=== PATIENT | male | born 1990 | race Caucasian/White ===

== ENCOUNTER 2018-02-13 14:55 | Emergency (ER) | payer SELFPAY ==
[2018-02-13 15:05] VITALS: BP 117/72
--- NOTE | 2018-02-13 15:13 | ER Document Report ---
ED General - General Mode of Arrival: Ambulatory Information source: Patient TRAVEL OUTSIDE OF THE [place] IN LAST 30 DAYS: No <BECKIE VILLANUEVA - Last Filed: 02/13/18 22:25> <PAULINA DAVENPORT Serenity - Last Filed: 02/13/18 22:56> - General Chief Complaint: Buttock Injury Stated Complaint: TAILBONE PAIN Time Seen by Provider: 02/13/18 15:07 Notes: 27 y.o male presents to the ED with pain to his tail bone area. Pt reports that he was helping his friend move and he pushed up against the wall and felt pain. Pt denies any fall or burning with urination or fever. Pt reports past abscesses to the inside of his proximal legs and states that he has been told that they could come up anywhere. (BECKIE VILLANUEVA) - Related Data Allergies/Adverse Reactions: No Known Allergies Allergy (Verified 02/13/18 14:57) Past Medical History - General Information source: Patient - Social History Smoking Status: Current Every Day Smoker Cigarette use (# per day): Yes - 1 pack/day Chew tobacco use (# tins/day): No Smoking Education Provided: Yes Frequency of alcohol use: Social Family History: None. denies: Arthritis, CAD, CVA, DM, Hyperlipidemia, Hypertension, Malignancy, Thyroid Disfunction Musculoskeltal Medical History: Reports Hx Musculoskeletal Deformity - Back pain in the past, Reports Hx Musculoskeletal Trauma - Right clavicle Skin Medical History: Reports Hx Cellulitis, Reports Hx MRSA Traumatic Medical History: Reports: Hx Fractures - Right clavicle - Immunizations Hx Diphtheria, Pertussis, Tetanus Vaccination: Yes - unknown <BECKIE VILLANUEVA - Last Filed: 02/13/18 22:25> Review of Systems - Review of Systems Constitutional: denies: Fever EENT: No symptoms reported Cardiovascular: No symptoms reported Respiratory: No symptoms reported Gastrointestinal: No symptoms reported Genitourinary: See HPI. denies: Burning Male Genitourinary: No symptoms reported Musculoskeletal: No symptoms reported Skin: See HPI, Other - abscess to tailbone region Hematologic/Lymphatic: No symptoms reported Neurological/Psychological: No symptoms reported -: Yes All other systems reviewed and negative <BECKIE VILLANUEVA - Last Filed: 02/13/18 22:25> Physical Exam <BECKIE VILLANUEVA - Last Filed: 02/13/18 22:25> <PAULINA DAVENPORT - Last Filed: 02/13/18 22:56> - Vital signs Vitals: Temp Pulse Resp BP Pulse Ox 98.0 F 120 H 16 117/72 98 02/13/18 15:03 02/13/18 15:03 02/13/18 15:03 02/13/18 15:03 02/13/18 15:03 - Notes Notes: Physical Exam: General: Alert, appears well. HEENT: Normocephalic. Atraumatic. PERRL. Extraocular movements intact. Oropharynx clear. Neck: Supple. Non-tender. Respiratory: No respiratory distress. Clear and equal breath sounds bilaterally. Cardiovascular: Regular rate and rhythm. Abdominal: Normal Inspection. Non-tender. No distension. Normal Bowel Sounds. Back: Non-tender. No deformity or step off. Extremities: Moves all four extremities. Upper extremities: Normal inspection. Normal ROM. Lower extremities: Normal inspection. No edema. Normal ROM. Neurological: Normal cognition. AAOx3. Normal speech. Psychological: Normal affect. Normal Mood. Skin: Warm. Dry. TTP to gluteal fold, no bruising. Boggy area at the beginning of gluteal fold, induration and erythema 1cm surrounding boggy area. (BECKIE VILLANUEVA) Course <BECKIE VILLANUEVA - Last Filed: 02/13/18 22:25> <PAULINA DAVENPORT - Last Filed: 02/13/18 22:56> - Re-evaluation Re-evalutation: 02/13/18 15:24 Rechecked pt's pulse to be 92 bpm. (BECKIE VILLANUEVA) 02/13/18 15:51 Patient history physical examination consistent with pilonidal cyst. Incision and drainage performed at bedside with no complications. No evidence of surrounding cellulitis will defer any this time. Referred to [facility] for surgery referral from them. Instructed patient to remove wick in 2 days. Return precautions provided. (PAULINA DAVENPORT) - Vital Signs Vital signs: Temp Pulse Resp BP Pulse Ox 98.0 F 92 16 117/72 98 02/13/18 15:03 02/13/18 15:24 02/13/18 15:03 02/13/18 15:03 02/13/18 15:03 Procedures <BECKIE VILLANUEVA - Last Filed: 02/13/18 22:25> - Incision and Drainage Buttock Type: Simple Anesthetic type: 1% Lidocaine Blade size: 11 I&D procedure: Betadine prep applied Incision Method: Incision made by scalpel Amount/type of drainage: 4 cc of purulent bloody discharge <PAULINA DAVENPORT - Last Filed: 02/13/18 22:56> - Incision and Drainage Buttock Notes: 02/13/18 15:51 Small amount of packing placed no complications during procedure (PAULINA DAVENPORT) Discharge <BECKIE VILLANUEVA - Last Filed: 02/13/18 22:25> <PAULINA DAVENPORT - Last Filed: 02/13/18 22:56> - Discharge Clinical Impression: Pilonidal abscess Condition: Good Disposition: HOME, SELF-CARE Instructions: Abscess ([facility]), Post Incision and Drainage Additional Instructions: [facility] will refer you to a surgeon for definitive care for removal of pilonidal cyst Remove wick put in abscess in 2 days Referrals: [facility] [NO [facility]AL MD] - Follow up in 3-5 days Scribe Attestation: 02/13/18 22:56 I personally performed the services described documentation, reviewed and edited the documentation which was dictated to describe my presence, and it accurately records my words and actions. (PAULINA DAVENPORT) Scribe Documentation - Scribe Written by Yovani:: Yovani Adams 02/13/18 [id number] acting as scribe for :: Sunny <BECKIE VILLANUEVA - Last Filed: 02/13/18 22:25>
[2018-02-13] MEDS ORDERED: LIDOCAINE 1% INJ-PF (10 MG/ML) 30 ML SDV INJ ONE (15:14)
== END 2018-02-13 15:57 | disposition home or self-care (01) ==
LOC: ER 14:55
PROC: 0H98XZZ Drainage of Buttock Skin, External Approach (ICD-10-PCS; principal; 2018-02-13)
DX: L05.01 Pilonidal cyst with abscess (principal); F17.210 Nicotine dependence, cigarettes, uncomplicated
CPT/HCPCS: 99283

== ENCOUNTER 2020-02-03 11:19 | Emergency (ER) | payer SELFPAY ==
[2020-02-03 11:24] VITALS: BP 120/76
[2020-02-03] MEDS ORDERED: DIPH/PERTUSS(ACELL)/TETANUS VAC/PF 0.5 ML SYR (>=10YO) IM ONE (11:26)
[2020-02-03] MEDS ORDERED: LIDOCAINE 1% INJ (10 MG/ML) 10 ML MDV INJ ONE (11:26)
--- NOTE | 2020-02-03 11:32 | ER Document Report ---
HPI - HPI Patient complains to provider of: Insect bite Time Seen by Provider: 02/03/20 11:24 Onset: Yesterday Onset/Duration: Sudden Quality of pain: Achy Associated Symptoms: None Exacerbated by: Denies Relieved by: Denies Past Medical History - General Information source: Patient - Social History Smoking Status: Current Every Day Smoker Cigarette use (# per day): Yes - 20 Chew tobacco use (# tins/day): No Smoking Education Provided: No Frequency of alcohol use: Rare Family History: None. denies: Arthritis, CAD, CVA, DM, Hyperlipidemia, Hypertension, Malignancy, Thyroid Disfunction - Medical History Medical History: Negative Renal/ Medical History: Denies: Hx Peritoneal Dialysis Musculoskeletal Medical History: Reports Hx Musculoskeletal Deformity - Back pain in the past, Reports Hx Musculoskeletal Trauma - Right clavicle Skin Medical History: Reports Hx Cellulitis, Reports Hx MRSA Traumatic Medical History: Reports: Hx Fractures - Right clavicle - Immunizations Hx Diphtheria, Pertussis, Tetanus Vaccination: Yes - unknown Vertical Provider Document - CONSTITUTIONAL Agree With Documented VS: Yes - INFECTION CONTROL TRAVEL OUTSIDE OF THE [place] IN LAST 30 DAYS: No - HEENT HEENT: Atraumatic, Conjuctival Injection - NECK Neck: Normal Inspection, Supple - RESPIRATORY Respiratory: Breath Sounds Normal, No Respiratory Distress - CARDIOVASCULAR Cardiovascular: Regular Rate, Regular Rhythm - GI/ABDOMEN Gastrointestinal: Abdomen Soft, Abdomen Non-Tender - REPRODUCTIVE Male Genitalia: Normal Inspection - BACK Back: Normal Inspection - MUSCULOSKELETAL/EXTREMETIES Musculoskeletal/Extremeties: MAEW - NEURO Level of Consciousness: Awake, Alert Notes: Abscess to posterior aspect of right lower extremity. 2 x 2 centimeter fluctuant area. Course - Vital Signs Vital signs: Temp Pulse Resp BP Pulse Ox 98.1 F 101 H 14 120/76 99 02/03/20 11:23 02/03/20 11:23 02/03/20 11:23 02/03/20 11:23 02/03/20 11:23 Procedures - Incision and Drainage Right Lower Leg Type: Simple Anesthetic type: 1% Lidocaine Blade size: 11 I&D procedure: Betadine prep applied, Sterile dressing applied Incision Method: Incision made by scalpel Amount/type of drainage: 10cc Discharge - Discharge Clinical Impression: Abscess Condition: Good Disposition: HOME, SELF-CARE Instructions: Abscess ([facility]), Post Incision and Drainage, Trimethoprim-Sulfa ([facility]) Additional Instructions: Warm soaks 4-5 times a day. Follow-up PMD in 2 to 3 days. Prescriptions: Sulfamethoxazole/Trimethoprim [Bactrim 400-80 mg Tablet] 1 each PO Q12 #20 tablet Naproxen Sodium [Naproxen Sodium ER] 500 mg PO Q12 PRN #20 tablet.sa PRN Reason:
[2020-02-03] MEDS ORDERED: LIDOCAINE 2% INJ-PF (20 MG/ML) 10 ML AMPUL ONE (11:37)
[2020-02-03] MEDS ORDERED: LIDOCAINE 1% INJ-PF (10 MG/ML) 30 ML SDV ONE (11:39)
== END 2020-02-03 11:52 | disposition home or self-care (01) ==
LOC: ER 11:19
PROC: 0H9KXZZ Drainage of Right Lower Leg Skin, External Approach (ICD-10-PCS; principal; 2020-02-03)
DX: L02.415 Cutaneous abscess of right lower limb (principal); M54.9 Dorsalgia, unspecified; W57.XXXA Bitten or stung by nonvenomous insect and other nonvenomous arthropods, initial encounter; F17.210 Nicotine dependence, cigarettes, uncomplicated; Z86.14 Personal history of Methicillin resistant Staphylococcus aureus infection
CPT/HCPCS: 99283; 90471; 90715; 10060; J3490

== ENCOUNTER 2020-05-05 13:46 | Emergency (ER) | payer SELFPAY ==
[2020-05-05 13:57] VITALS: BP 130/79
[2020-05-05] MEDS ORDERED: CLINDAMYCIN 300 MG/D5W RTU 300 MG/50 ML RTUPB IV ONE (14:06)
--- NOTE | 2020-05-05 14:09 | ER Document Report ---
ED Medical Screen (RME) - General Chief Complaint: Insect Bite Stated Complaint: TOOTHACHE/RIGHT ELBO INSECT BITE Time Seen by Provider: 05/05/20 13:58 Notes: Patient is a 29-year-old male who presents emergency department with a chief complaint of left lower jaw swelling and right elbow swelling. Patient states that his symptoms started about a week ago. Patient has history of abscesses in the past. Denies any history of IV drug use. Exam: Fluctuance noted to the left lower jaw. Erythema and tenderness noted to right elbow. I have greeted and performed a rapid initial assessment of this patient. A comprehensive ED assessment and evaluation of the patient, analysis of test results and completion of medical decision making process will be conducted by an additional ED providers. TRAVEL OUTSIDE OF THE [place] IN LAST 30 DAYS: No - Related Data Allergies/Adverse Reactions: No Known Allergies Allergy (Verified 02/03/20 11:24) Past Medical History Renal/ Medical History: Denies: Hx Peritoneal Dialysis Musculoskeltal Medical History: Reports Hx Musculoskeletal Deformity - Back pain in the past, Reports Hx Musculoskeletal Trauma - Right clavicle Skin Medical History: Reports Hx Cellulitis, Reports Hx MRSA Traumatic Medical History: Reports: Hx Fractures - Right clavicle - Immunizations Hx Diphtheria, Pertussis, Tetanus Vaccination: Yes - unknown Physical Exam - Vital signs Vitals: Temp Pulse Resp BP Pulse Ox 98.5 F 99 20 130/79 H 98 05/05/20 13:55 05/05/20 13:55 05/05/20 13:55 05/05/20 13:55 05/05/20 13:55 Course - Vital Signs Vital signs: Temp Pulse Resp BP Pulse Ox 98.5 F 99 20 130/79 H 98 05/05/20 13:55 05/05/20 13:55 05/05/20 13:55 05/05/20 13:55 05/05/20 13:55
[2020-05-05] MEDS ORDERED: LIDOCAINE 1% INJ-PF (10 MG/ML) 30 ML SDV INJ ONE (14:14)
[2020-05-05 14:52] LABS: ABSOLUTE BASOPHILS # (AUTO) 0.1 10^3/uL (0.0-0.2); ABSOLUTE EOSINOPHILS # (AUTO) 0.3 10^3/uL (0.0-0.6); ABSOLUTE LYMPHOCYTES (AUTO) 2.2 10^3/uL (0.5-4.7); ABSOLUTE MONOCYTES (AUTO) 1.5 10^3/uL (0.1-1.4); ABSOLUTE NEUT (AUTO) 9.3 10^3/uL (1.7-8.2); BASOPHILS % (AUTO) 0.5 % (0-2); EOSINOPHILS % (AUTO) 1.9 % (0-6); HEMATOCRIT 38.7 % (37.9-51.0); HEMOGLOBIN 13.3 g/dL (13.5-17.0); LYMPHOCYTES % (AUTO) 16.5 % (13-45); MEAN CORPUSCULAR HEMOGLOBIN 31.6 pg (27.0-33.4); MEAN CORPUSCULAR HGB CONC 34.3 g/dL (32.0-36.0); MEAN CORPUSCULAR VOLUME 92 fl (80-97); MONOCYTES % (AUTO) 11.3 % (3-13); PLATELET COUNT 340 10^3/uL (150-450); RED BLOOD COUNT 4.21 10^6/uL (4.35-5.55); RED CELL DISTRIBUTION WIDTH 12.7 % (11.5-14.0); SEGMENTED NEUTROPHILS % (AUTO) 69.8 % (42-78); TOTAL CELLS COUNTED % (AUTO) 100 %; WHITE BLOOD COUNT 13.3 10^3/uL (4.0-10.5)
--- NOTE | 2020-05-05 14:55 | ER Document Report ---
ED Skin Rash/Insect Bite/Abscs - General Chief Complaint: Abscess Stated Complaint: TOOTHACHE/RIGHT ELBO INSECT BITE Time Seen by Provider: 05/05/20 13:58 Primary Care Provider: Sae [facility] [Provider Group] - Follow up in 1 week [facility] [Provider Group] - Follow up as needed [facility] [Provider Group] - Follow up as needed Notes: Patient is a 29-year-old male who presents emergency department with a chief complaint of left lower jaw swelling and right elbow swelling. Patient states that his symptoms started about a week ago. States that he has an abscess there and he attempted to drain it, but only a small amount of drainage came out. Patient has history of abscesses in the past. Denies any history of IV drug use. TRAVEL OUTSIDE OF THE [place] IN LAST 30 DAYS: No - Related Data Allergies/Adverse Reactions: No Known Allergies Allergy (Verified 02/03/20 11:24) Past Medical History - Social History Smoking Status: Current Every Day Smoker Frequency of alcohol use: None Drug Abuse: Marijuana Family History: None. denies: Arthritis, CAD, CVA, DM, Hyperlipidemia, Hypertension, Malignancy, Thyroid Disfunction Renal/ Medical History: Denies: Hx Peritoneal Dialysis Musculoskeletal Medical History: Reports Hx Musculoskeletal Deformity - Back pain in the past, Reports Hx Musculoskeletal Trauma - Right clavicle Skin Medical History: Reports Hx Cellulitis, Reports Hx MRSA Traumatic Medical History: Reports: Hx Fractures - Right clavicle - Immunizations Hx Diphtheria, Pertussis, Tetanus Vaccination: Yes - unknown Review of Systems - Review of Systems Notes: REVIEW OF SYSTEMS: CONSTITUTIONAL : Denies recent illness. Denies recent unintentional weight loss. See HPI. EENT: Denies eye, ear, throat, discharge, or symptoms. Denies nasal or sinus congestion. See HPI. CARDIOVASCULAR: Denies chest pain. RESPIRATORY: Denies shortness of breath, cough, congestion, difficulty breathing, or wheezing. GASTROINTESTINAL: Denies nausea, vomiting, and diarrhea. Denies abdominal pain. Denies constipation. GENITOURINARY: Denies difficulty urinating, burning, blood in urine, urgency or frequency. MUSCULOSKELETAL: Denies neck and back pain. Denies joint pain or swelling. SKIN: See HPI. HEMATOLOGIC : Denies easy bruising or bleeding. LYMPHATIC: Denies swollen, painful, enlarged glands. NEUROLOGICAL: Denies no numbness or tingling denies weakness. Denies headache. Denies altered mental status. Denies alteration in speech. PSYCHIATRIC: Denies stress, anxiety, alteration in sleep patterns, or depression. All other systems reviewed and negative. Physical Exam - Vital signs Vitals: Temp Pulse Resp BP Pulse Ox 98.5 F 99 20 130/79 H 98 05/05/20 13:55 05/05/20 13:55 05/05/20 13:55 05/05/20 13:55 05/05/20 13:55 - Notes Notes: PHYSICAL EXAMINATION: GENERAL: Appears well, healthy, well-nourished, no acute distress. HEAD: Normocephalic, atraumatic. EYES: PERRL, conjunctiva normal, all extraocular movements intact, sclera nonicteric ENT: Moist mucous membranes. Abscess noted to left lower jaw. NECK: Supple, no noticeable swelling, redness, rash. Normal range of motion. LUNGS: Equal breath sounds bilaterally and clear to auscultation. No wheezes rales or rhonchi. CARDIOVASCULAR: S1-S2, regular rate, regular rhythm. Radial pulses 2+, normal. ABDOMEN: Normoactive bowel sounds. Soft, nontender, no guarding, no rebound tenderness, and no masses palpated. EXTREMITIES: Normal strength and range of motion, no pitting or edema. No cyanosis. NEUROLOGICAL: Moves all extremities upon command. Strength 5/5 in all extremities. PSYCH: Normal mood, normal affect. SKIN: Warm, dry. Normal skin turgor. Abscess noted to right medial elbow. Erythema noted. Course - Re-evaluation Re-evalutation: 05/05/20 15:23 Hematology shows a leukocytosis of 13,300. Hemoglobin is 13.3. Patient received a dose of clindamycin IV here in the emergency department.Abscess was drained to right elbow area and to left lower jaw. A large amount of purulent drainage was drained from the jaw. Cultures were sent. Patient will be started on Bactrim and Keflex. No evidence of necrotizing fasciitis. Follow-up precautions were given. Verbal discharge instructions were given to the patient. They verbalized understanding. They are stable for discharge. - Vital Signs Vital signs: Temp Pulse Resp BP Pulse Ox 98.5 F 99 20 130/79 H 98 05/05/20 13:55 05/05/20 13:55 05/05/20 13:55 05/05/20 13:55 05/05/20 13:55 - Laboratory Result Diagrams: 05/05/20 14:33 05/05/20 14:33 Laboratory results interpreted by me: 05/05/20 05/05/20 14:33 14:33 WBC 13.3 H RBC 4.21 L Hgb 13.3 L Absolute Neuts (auto) 9.3 H Absolute Monos (auto) 1.5 H Glucose 111 H Procedures - Incision and Drainage Left lower jaw Type: Simple Blade size: 11 Incision Method: Incision made by scalpel Amount/type of drainage: 30 mL/purulent and blood Mouth/Teeth picture: 1 - Abscess Right Medial Elbow Type: Simple, Multiple Anesthetic type: 1% Lidocaine mL's of anesthetic: 5 Blade size: 11 I&D procedure: Betadine prep applied Incision Method: Incision made by scalpel Amount/type of drainage: 5 mL's/purulent/blood Adult Front & Back picture: 1 - 3 abscesses Discharge - Discharge Clinical Impression: Abscess Cellulitis Qualifiers: Site of cellulitis: extremity Site of cellulitis of extremity: upper extremity Laterality: right Qualified Code(s): L03.113 - Cellulitis of right upper limb Condition: Stable Disposition: HOME, SELF-CARE Instructions: Abscess ([facility]), Cephalexin ([facility]), Post Incision and Drainage, Trimethoprim-Sulfa ([facility]) Additional Instructions: You were seen today in the emergency department for abscesses to your right elbow and your lower jaw. They were drained here in the emergency department. Take your antibiotics as prescribed. Return if your symptoms are worse. Follow-up with a dentist. See if he can get an appointment for when you are done with your antibiotics. Prescriptions: Sulfamethoxazole/Trimethoprim [Bactrim Ds Tablet] 1 each PO BID 7 Days #14 tablet Cephalexin Monohydrate [Keflex 500 mg Capsule] 500 mg PO Q6H 5 Days #28 capsule Referrals: [facility] [Provider Group] - Follow up in 1 week [facility] [Provider Group] - Follow up as needed [facility] [Provider Group] - Follow up as needed
[2020-05-05 15:10] LABS: ANION GAP 7 (5-19); BLOOD UREA NITROGEN 19 mg/dL (7-20); CALCIUM 9.3 mg/dL (8.4-10.2); CARBON DIOXIDE 23 mmol/L (22-30); CHLORIDE 107 mmol/L (98-107); GLUCOSE 111 mg/dL (75-110); POTASSIUM 4.2 mmol/L (3.6-5.0)
== END 2020-05-05 15:41 | disposition home or self-care (01) ==
LOC: ER 13:46
PROC: 0H9EXZZ Drainage of Left Lower Arm Skin, External Approach (ICD-10-PCS; principal; 2020-05-05)
DX: L02.414 Cutaneous abscess of left upper limb (principal); L03.113 Cellulitis of right upper limb; K04.7 Periapical abscess without sinus; K08.89 Other specified disorders of teeth and supporting structures; R22.0 Localized swelling, mass and lump, head; M79.89 Other specified soft tissue disorders; W57.XXXA Bitten or stung by nonvenomous insect and other nonvenomous arthropods, initial encounter; F17.200 Nicotine dependence, unspecified, uncomplicated; F12.10 Cannabis abuse, uncomplicated
CPT/HCPCS: 99284; 96365; 36415; 87040; 87070; 87205; 85025; 87075; 87077; 80048; 87186; 87150 ×26; 10060; J3490 ×2